=== PATIENT | male | born 1960 | race Caucasian/White ===

== ENCOUNTER 2017-08-15 13:54 | Outpatient (CLI) | payer BC ==
[~2017-08-15 13:54] MED LIST: Gadobenate Dimeglumine 529 MG/1 ML (20ML VIAL) ONE
== END 2017-08-15 13:55 | disposition home or self-care (01) ==
LOC: BICMRI 13:54
PROVIDERS: ATTEND Family Medicine
DX: M47.26 Other spondylosis with radiculopathy, lumbar region (principal); M47.27 Other spondylosis with radiculopathy, lumbosacral region; M51.16 Intervertebral disc disorders with radiculopathy, lumbar region
CPT/HCPCS: 72158; A9579

== ENCOUNTER 2017-11-15 12:27 | Outpatient (CLI) | payer BC ==
--- NOTE | 2017-11-15 16:49 | EKG ---
Test Reason : Blood Pressure : / mmHG Vent. Rate : 081 BPM Atrial Rate : 081 BPM P-R Int : 172 ms QRS Dur : 090 ms QT Int : 356 ms P-R-T Axes : 053 059 040 degrees QTc Int : 413 ms Normal sinus rhythm Normal ECG When compared with ECG of 06-FEB-2017 09:25, No significant change was found Confirmed by DR. Megan RAHMAN (3) on 11/15/2017 4:48:49 PM Referred By: CARLEE Confirmed By:DR. Megan RAHMAN
== END 2017-11-15 12:28 | disposition home or self-care (01) ==
LOC: LABBT 12:27
PROVIDERS: ATTEND Neurological Surgery
DX: Z01.818 Encounter for other preprocedural examination (principal); M54.16 Radiculopathy, lumbar region
CPT/HCPCS: 93005; 93010

== ENCOUNTER 2017-11-20 06:04 | Day surgery (SDC) | payer BC ==
--- NOTE | 2017-11-19 15:07 | HP ---
HISTORY OF PRESENT ILLNESS: Mr. Gardner is a patient referred to us by Dr. Us for lumbar rad iculopathy in a pattern of an L5 distribution bilaterally, more significant on the right side than th e left. He also has significant left-sided lower back pain, though I do not have great explanation f or this unless it is part of his L5 radicular pains. This is all in the setting of an MRI performed at [facility] that reveals severe foraminal stenosis, left worse than right. It is likely impli cated in his symptoms. He has gone through several rounds of injections and is ready to move forward with surgery if possible. PAST MEDICAL HISTORY: Significant for chronic back pain. CURRENT MEDICATIONS: Leon and vitamin B12. ALLERGIES: No known drug allergies. PAST SURGICAL HISTORY: Right elbow surgery, unspecified, ACDF, left shoulder surgery, lumbar laminec maria r and an unspecified left hand surgery. PHYSICAL EXAMINATION: The patient's gait is significantly antalgic. Lower extremity motor exam is n ormal. ASSESSMENT: Lumbar radiculopathy. PLAN: Dr. Tee met with the patient, reviewed imaging and advocated for bilateral L5 foraminotomies . He explained to the patient the risks, benefits and alternatives of the procedure. The patient ex pressed understanding and would like to move forward with surgery as discussed. I do believe the humaira segovia is mentally competent and capable of making medical decisions for himself and we will move forwa rd with surgery as planned. Manjeet Elias PA-C dictating for Dr. Tee.
[2017-11-20] MEDS ORDERED: Bupivacaine HCl 0.5%/Epinephrine 1:200,000/PF 30 ml Vial ONE ×2 (06:16→08:14)
[2017-11-20] MEDS ORDERED: CEFAZOLIN/Water 2 GM/20 ML SYRINGE ONE ×2 (06:56→12:45)
[2017-11-20] MEDS ORDERED: Thrombin 5000 UNITS/5 ML VIAL ONE (08:14)
[2017-11-20] MEDS ORDERED: Fentanyl 250 MCG/5 ML VIAL ONE (09:10)
[2017-11-20] MEDS ORDERED: Midazolam HCl 2 mg/2 ml Vial ONE (09:10)
[2017-11-20] MEDS ORDERED: Ondansetron HCl/PF 4 MG/2 ML Vial ONE ×2 (09:10→14:39)
[2017-11-20] MEDS ORDERED: Tamsulosin HCl 0.4 MG CAP ONE (10:59)
[2017-11-20] MEDS ORDERED: Fentanyl 100 MCG/2 ML VIAL ONE ×2 (10:59→11:19)
[2017-11-20] MEDS ORDERED: HYDROcodone/Acetaminophen 5/325 mg Tablet ONE (12:45)
[2017-11-20] MEDS ORDERED: Dexamethasone 20 MG/5 ML VIAL ONE (14:39)
[2017-11-20] MEDS ORDERED: Lidocaine 1% PF 5 ML VIAL ONE (14:39)
[2017-11-20] MEDS ORDERED: Glycopyrrolate 0.2 MG/ML 5 ML SYRINGE ONE (14:39)
[2017-11-20] MEDS ORDERED: PROPOFOL 200 MG/20 ML VIAL ONE (14:39)
--- NOTE | 2017-11-21 13:10 | OP ---
DATE OF PROCEDURE: 11/20/2017 SURGEON: Christopher Tee M.D. POLYMER ENGINEER: Dennis Elias PA-C. INDICATION: Pain. DIAGNOSIS: Bilateral L5 radiculopathy secondary to bilateral L5 stenosis. PROCEDURE: Bilateral L5 foraminotomy. ANESTHESIA: General. TECHNIQUE: The patient was brought into the operating room and placed under anesthesia. He was flip ped from a supine to a prone position on the operating room table. A linear incision was planned ove r the L5 segment. After prepping and draping and after an appropriate operative pause, the incision was created. Soft tissues were swept away from midline. Self-retaining retractors were placed into the wound for optimal exposure. After confirming the appropriate level with C-arm fluoroscopy, bilat eral laminectomies were performed at L5. The exiting L5 nerve roots were identified and foraminotomi es were performed over each in order to decompress the exiting L5 nerve roots. The wound was then ir rigated. Hemostasis was maintained throughout. The wound was then closed in anatomic layers and a p ressure dressing was applied. There were no known procedural complications.
== END 2017-11-20 13:40 | disposition home or self-care (01) ==
LOC: SDC 06:04
PROVIDERS: ATTEND Neurological Surgery
PROC: 01NB0ZZ Release Lumbar Nerve, Open Approach (ICD-10-PCS; principal; 2017-11-20)
DX: M54.16 Radiculopathy, lumbar region (principal); M48.061 Spinal stenosis, lumbar region without neurogenic claudication; M54.12 Radiculopathy, cervical region; M19.90 Unspecified osteoarthritis, unspecified site; Z79.899 Other long term (current) drug therapy; Z98.890 Other specified postprocedural states
CPT/HCPCS: 76001; 96374; J0670; J1100; J2001; J2250; J2405; J2704; J3010

== ENCOUNTER 2019-02-24 20:03 | Emergency (ER) | payer BC ==
[2019-02-24 20:36] LABS: #Basophils 0.1 thou/uL (0.0-0.2); #Eosinphils 0.1 thou/uL (0.0-0.7); #Lymphocytes 1.7 thou/uL (1.20-3.40); #Monocytes 0.7 thou/uL (0.11-0.59); #Neutrophils 3.2 thou/uL (1.40-6.50); %Basophils 1.5 % (0.0-1.0); %Eosinophils 1.9 % (0.0-10.0); %Lymphocytes 29.2 % (21.0-51.0); %Monocytes 11.4 % (0.0-10.0); Mean Corpuscular HGB CONC 33.6 g/dL (32.0-36.0); Mean Corpuscular Hemoglobin 30.6 pg (27.0-31.0); Mean Corpuscular Volume 91.2 fL (78.0-98.0); Mean Platelet Volume 7.7 fL (7.4-10.4); Platelet Count 259 thou/uL (130-400); RBC Distribution Width 12.4 % (11.5-14.5); Red Blood Cell (RBC) Count 5.56 mill/uL (4.70-6.10); White Blood Cell (WBC) Count 5.8 thou/uL (4.8-10.8)
[2019-02-24 20:42] LABS: Bilirubin Negative (Negative); Blood, Urine Negative (Negative); Clarity Clear (Clear); Glucose, Urine (Dipstick) Normal (Negative); Leukocyte Negative Leu/uL (Negative); Nitrite Negative (Negative); Protein, Urine (Dipstick) Negative (Neg-Trace); Urobilinogen Normal mg/dL (Less than 2)
[2019-02-24 20:59] LABS: ALT (SGPT) 16 U/L (8-55); AST (SGOT) 16 U/L (5-34); Albumin 4.5 g/dL (3.5-5.0); Alkaline Phosphatase 92 U/L (40-150); Anion Gap 11 mmol/L (10-20); BUN (Urea Nitrogen) 15 mg/dL (8.4-25.7); Bilirubin, Total 0.6 mg/dL (0.2-1.2); Calc. Creatinine Clearance 0 mL/min (70-130); Calcium 9.6 mg/dL (7.8-10.44); Carbon Dioxide 28 mmol/L (22-29); Chloride 103 mmol/L (98-107); Estimated GFR-MDRD 69; Globulin 2.4 g/dL (2.4-3.5); Glucose 95 mg/dL (70-105); Protein, Total 6.9 g/dL (6.0-8.3); Sodium 138 mmol/L (136-145)
[2019-02-25] MEDS ORDERED: Meclizine HCl 25 MG TAB ONE (00:23)
--- NOTE | 2019-02-25 07:35 | CT ---
PRELIMINARY REPORT/[facility]/EMERGENCY AFTER HOURS PROCEDURE EXAM: CT Head Without Contrast EXAM DATE/TIME: 02/25/2019 12:26 AM CLINICAL HISTORY: 58 years old, male; Patient HX: [id number] is sent to the ED by urgent care after experiencing dizziness and lightheadedness while working outside in the heat. PT reports "catching himself from passing out", and reports nausea. TECHNIQUE: Imaging protocol: Computed tomography images of the head without contrast. COMPARISON: No relevant prior studies available. FINDINGS: Brain: Normal. No hemorrhage. Unremarkable white matter. No mass effect. Ventricles: Normal. No ventriculomegaly. Bones/joints: Unremarkable. No acute fracture. Sinuses: Visualized sinuses are unremarkable. No fluid levels. Mastoid air cells: Visualized mastoid air cells are well aerated. No mastoid effusion. Soft tissues: Unremarkable. IMPRESSION: No acute intracranial abnormality. Thank you for allowing us to participate in the care of your patient. Dictated and Authenticated by: Claribel Bradshaw MD 02/25/2019 12:52 AM Central Time ([place] & [place]) FINAL REPORT CT HEAD WITHOUT CONTRAST: HISTORY: Dizziness and lightheadedness. FINDINGS: No parenchymal hemorrhage. No extraaxial hematoma. Brain volume is age appropriate. No hydrocephal us. Cortical ibarra white matter differentiation is preserved. Adequate aeration of the sinuses and m astoid air cells. Intact calvarium. IMPRESSION: No acute intracranial process. This report is in agreement with the preliminary report by [facility]. CODE QA POS: LUCAS
== END 2019-02-25 02:12 | disposition home or self-care (01) ==
LOC: ERS 20:03
DX: H81.13 Benign paroxysmal vertigo, bilateral (principal); F32.9 Major depressive disorder, single episode, unspecified; F17.220 Nicotine dependence, chewing tobacco, uncomplicated
CPT/HCPCS: 36415; 70450; 80053; 81003; 82550; 84484; 85025; 96360; 96361; J8597

== ENCOUNTER 2019-11-25 15:03 | Outpatient (CLI) | payer BC ==
--- NOTE | 2019-11-25 15:35 | RAD ---
RADIOGRAPH CERVICAL SPINE 3 VIEWS: DATE: 11/25/2019 HISTORY: 59-year-old male with cervicalgia COMPARISON: 11/09/2014 TECHNIQUE: Lateral, swimmer's, and AP views. FINDINGS: Again noted is the ACDF hardware at C5, C6, and C7. Alignment is normal. There has been interval anky losis across the C5-6 and C6-7 disc spaces. There has been interval worsening of facet DJD at C2-3, C3-4, and C4-5. Very mild new disc space narrowing at C3-4. The C2-3 and C4-5 disc spaces are maintai iron. Vertebral body heights are maintained. No major spondylolisthesis. IMPRESSION: 1. Interval development of Successful ankylosis at the anterior cervical discectomy and fusion at C5- 6-7. 2. Interval worsening of facet osteoarthrosis in the upper and mid cervical spine.
== END 2019-11-25 15:04 | disposition home or self-care (01) ==
LOC: BICRAD 15:03
PROVIDERS: ATTEND Family Medicine
DX: M54.2 Cervicalgia (principal); M47.812 Spondylosis without myelopathy or radiculopathy, cervical region; M43.22 Fusion of spine, cervical region; Z98.1 Arthrodesis status
CPT/HCPCS: 72040

== ENCOUNTER 2019-12-16 09:24 | Outpatient (CLI) | payer BC ==
--- NOTE | 2019-12-16 12:18 | MRI ---
MRI CERVICAL SPINE WITHOUT CONTRAST: INDICATION: Neck pain. History of prior cervical surgery. Cervical radiculopathy. COMPARISON: Correlation is made to plain film cervical spine 11/25/2019. FINDINGS: Postoperative changes are noted from anterior fusion procedure. Anterior plate and screws transfix C 5, C6, and C7 with interbody implants and interbody fusion at these levels. The C2, C3, and C4 vertebrae maintain normal height. Disk spaces at these levels are preserved. No significant disk bulge or spondylosis at C2-3. At C3-4, posterior disk bulge and spondylosis abut the anterior cord. Bilateral foraminal stenosis s econdary to facet and uncinate hypertrophy at this level. At C4-5, posterior disk bulge and spondylosis efface the anterior subarachnoid space. Evidence of mi ld bilateral foraminal encroachment due to facet and uncinate hypertrophy. C5-6 shows interbody fusion. Mild right foraminal narrowing due to uncinate hypertrophy. C6-7: Interbody fusion. Anterior subarachnoid space is preserved. Mild bilateral foraminal narrowi ng more prominent on the right due to uncinate hypertrophy. C7-T1: No significant abnormality. A nerve root sleeve cyst on the left. Cord signal appears normally preserved. IMPRESSION: 1. Postoperative changes from anterior fusion procedure at C5, C6, and C7 levels as described. 2. Posterior disk bulge and spondylosis impinge on the cord at C3-4. Mild spondylotic change at C4- 5 as described. POS: AGW
== END 2019-12-16 09:25 | disposition home or self-care (01) ==
LOC: TBSIIMAG 09:24
PROVIDERS: ATTEND Neurological Surgery
DX: M47.22 Other spondylosis with radiculopathy, cervical region (principal); M50.11 Cervical disc disorder with radiculopathy, high cervical region; Z98.1 Arthrodesis status
CPT/HCPCS: 72141

== ENCOUNTER 2020-01-22 04:46 | Outpatient (CLI) | payer BC, OTHER ==
[2020-01-23 12:36] LABS: SARS-CoV-2 MS2 Positive; SARS-CoV-2 N Gene Negative; SARS-CoV-2 S Gene Negative; SARS-CoV-2 orf1ab Negative
== END 2020-01-22 04:47 | disposition home or self-care (01) ==
LOC: LABBT 04:46
PROVIDERS: ATTEND Neurological Surgery
DX: Z01.812 Encounter for preprocedural laboratory examination (principal); Z11.59 Encounter for screening for other viral diseases; M54.12 Radiculopathy, cervical region
CPT/HCPCS: 87635; U0003

== ENCOUNTER 2020-01-27 05:29 | Day surgery (SDC) | payer BC ==
[2020-01-20 10:20] VITALS: BMI 28.3
--- NOTE | 2020-01-26 18:56 | HP ---
HISTORY OF PRESENT ILLNESS: Mr. Gardner is known to us for prior 2-level ACDF, who presents now with bilateral C4 radiculopathies. He had x-rays performed, which show excellent fusion construct at C5 through C7, with a new MRI as well showing progression of C3-C4 disease with foraminal stenosis bilaterally, that seems to fit well his symptoms. He has treated this conservatively, but hopes to move forward with surgical intervention if possible. PAST MEDICAL HISTORY: Seasonal allergies. CURRENT MEDICATIONS: 1. Vitamin B12. 2. Unknown pain medication. ALLERGIES: NO KNOWN DRUG ALLERGIES. PAST SURGICAL HISTORY: 1. Right arm procedure, unspecified. 2. Two-level ACDF. PHYSICAL EXAMINATION: Examination is deferred for COVID visit. ASSESSMENT: Cervical radiculopathy. PLAN: Dr. Tee met with the patient, reviewed imaging, and advocated for reoperation of C3-C4 ACDF. He explained the patient risks, benefits, and alternatives to the procedure. The patient expressed understanding and elected to move forward with surgery as discussed. I do believe the patient is mentally competent capable of making medical decisions for himself. We will move forward with surgery as planned. Job ID: [id number]
[2020-01-27] MEDS ORDERED: Thrombin 5000 UNITS/5 ML VIAL ONE (06:10)
[2020-01-27] MEDS ORDERED: Fentanyl 100 MCG/2 ML VIAL ONE ×4 (06:12→09:07)
[2020-01-27] MEDS ORDERED: Midazolam HCl 2 mg/2 ml Vial ONE (06:47)
--- NOTE | 2020-01-27 08:12 | OP ---
DATE OF PROCEDURE: 01/27/2020 RECEIVABLE EXECUTIVE: Manjeet Elias PA-C INDICATION: Pain. DIAGNOSIS: Cervical radiculopathy. PROCEDURE PERFORMED: Anterior cervical diskectomy and fusion, C3-C4. ANESTHESIA: General. DESCRIPTION OF PROCEDURE: The patient was brought into the operating room and placed under general anesthesia. He was placed on table in a supine position. A transverse incision was planned over the lateral aspect of the neck on the right. After prepping and draping and after an appropriate preoperative pause, the incision was created. The underlying platysma muscle was identified and incised. A blunt tissue plane anterior to the sternocleidomastoid muscle was used to gain access to the prevertebral space. Self-retaining retractors were placed in the wound for optimal exposure. After confirming the appropriate level with C-arm fluoroscopy, an annulotomy was performed in the C3-C4 disk space. All disk material as well as anterior and posterior osteophytes were removed. After completing the decompression, a 6-mm lordotic PEEK cage packed with allograft and autograft material was placed within the interbody space. An anterior cervical plate was then fashioned to the front of the spine and secured with a total of 4 fixed screws. Midline and lateral structures were inspected and found to be free from significant trauma. The wound was irrigated. Hemostasis was maintained throughout. The wound was then closed in anatomic layers, and a pressure dressing was applied. There were no known procedural complications. Job ID: [id number]
[2020-01-27] MEDS ORDERED: Morphine 4 MG/ML VIAL ONE (09:45)
[2020-01-27] MEDS ORDERED: Acetaminophen/Codeine 30-300mg Tablet ONE (10:40)
[2020-01-27] MEDS ORDERED: Dexamethasone 20 MG/5 ML VIAL ONE (10:52)
[2020-01-27] MEDS ORDERED: Lidocaine 1% PF 5 ML VIAL ONE (10:52)
[2020-01-27] MEDS ORDERED: Ondansetron PF 4 MG/2 ML Vial ONE (10:52)
[2020-01-27] MEDS ORDERED: PROPOFOL 200 MG/20 ML VIAL ONE (10:52)
[2020-01-27] MEDS ORDERED: Rocuronium Bromide 10 MG/ML (10ML VIAL) ONE (10:52)
== END 2020-01-27 12:05 | disposition home or self-care (01) ==
LOC: SDC 05:29
PROVIDERS: ATTEND Neurological Surgery
PROC: 0RG10A0 Fusion of Cervical Vertebral Joint with Interbody Fusion Device, Anterior Approach, Anterior Column, Open Approach (ICD-10-PCS; principal; 2020-01-27)
PROC: 0RT30ZZ Resection of Cervical Vertebral Disc, Open Approach (ICD-10-PCS; principal; 2020-01-27)
DX: M54.12 Radiculopathy, cervical region (principal); F17.290 Nicotine dependence, other tobacco product, uncomplicated; Z79.899 Other long term (current) drug therapy
CPT/HCPCS: 76000; C1713; C1776; J0690; J1100; J2250; J2270; J2405; J2704; J3010

== ENCOUNTER 2020-01-31 01:48 | Emergency (ER) | payer BC ==
[2020-01-31] MEDS ORDERED: Ondansetron PF 4 MG/2 ML Vial ONE (03:13)
[2020-01-31] MEDS ORDERED: Morphine 4 MG/ML VIAL ONE (03:13)
[2020-01-31 03:31] LABS: #Basophils 0.1 thou/uL (0.0-0.2); #Eosinphils 0.1 thou/uL (0.0-0.7); #Lymphocytes 1.1 thou/uL (1.20-3.40); #Monocytes 0.7 thou/uL (0.11-0.59); #Neutrophils 6.4 thou/uL (1.40-6.50); %Basophils 0.7 % (0.0-1.0); %Eosinophils 1.4 % (0.0-10.0); %Lymphocytes 12.6 % (21.0-51.0); %Monocytes 8.7 % (0.0-10.0); %Neutrophils 76.6 % (42.0-75.0); Hemoglobin 16.9 g/dL (14.0-18.0); Mean Corpuscular HGB CONC 33.6 g/dL (32.0-36.0); Mean Corpuscular Hemoglobin 30.6 pg (27.0-31.0); Mean Corpuscular Volume 91.1 fL (78.0-98.0); Mean Platelet Volume 7.8 fL (7.4-10.4); Platelet Count 219 thou/uL (130-400); RBC Distribution Width 12.3 % (11.5-14.5); Red Blood Cell (RBC) Count 5.53 mill/uL (4.70-6.10); White Blood Cell (WBC) Count 8.3 thou/uL (4.8-10.8)
[2020-01-31 03:49] LABS: Anion Gap 12 mmol/L (10-20); BUN (Urea Nitrogen) 9 mg/dL (8.4-25.7); Calc. Creatinine Clearance 0 mL/min (70-130); Calcium 9.6 mg/dL (7.8-10.44); Carbon Dioxide 24 mmol/L (22-29); Chloride 104 mmol/L (98-107); Estimated GFR-MDRD 88; Glucose 109 mg/dL (70-105); Potassium 4.2 mmol/L (3.5-5.1); Sodium 136 mmol/L (136-145)
[2020-01-31] MEDS ORDERED: Dexamethasone 10 MG/ML VIAL ONE (04:30)
--- NOTE | 2020-01-31 07:46 | CT ---
PRELIMINARY REPORT/[facility]/AFTER HOURS PROCEDURE CT NECK WITH INTRAVENOUS CONTRAST: CLINICAL HISTORY: Patient presents with 3 days of progressive right-sided neck pain. Pain started 1 day after he had woodward rgery on his cervical spine at this hospital. He denies new injury. He has been taking Tylenol 3 and Flexeril as prescribed without relief. He denies fever or drainage from the wound. He feels that the wound has become slowly more swollen. TECHNIQUE: Axial computed tomography images of the neck with intravenous contrast. Sagittal and coronal reformat ions performed. CONTRAST: Isovue-370 100 mL. COMPARISON: None provided. FINDINGS: PHARYNX: The nasopharynx, oropharynx, and hypopharynx are unremarkable. No pharyngeal mucosal based m ass lesions. LARYNX: The larynx is unremarkable. Normal epiglottis. RETROPHARYNGEAL SPACE: No retropharyngeal soft tissue swelling or gas. SALIVARY GLANDS: The parotid, submandibular, and sublingual glands are unremarkable. LYMPH NODES: No lymphadenopathy. THYROID: The thyroid gland is unremarkable. No nodule. BONES: No acute osseous abnormality. Anterior C3-4 and C5-7 fusion hardware without evidence of hard goodman complication. Mild prevertebral right cervical soft tissue edema. No rim-enhancing fluid colle ction. IMPRESSION: 1. Anterior C3-4 and C5-7 fusion hardware without evidence of hardware complication. Mild preverteb ral and right cervical soft tissue stranding, likely post-surgical. 2. No rim enhancing fluid collection or abscess. ELECTRONICALLY SIGNED BY: Christopher Musa DO Jan 31, 2020 3:59:47 AM CDT This report is intended for review by the ordering physician only, in accordance of law. If you recei ve this report in error, please call [facility] at [phone]. FINAL REPORT EMERGENT AFTER HOURS CT NECK WITH CONTRAST: FINDINGS/IMPRESSION: I agree with the findings and impression given in the preliminary report per the [facility] phy sician. There is expected postoperative change in the prevertebral soft tissues from prior cervical fusion. N o focal fluid collection is seen. CODE QA POS: EAA
[2020-01-31] MEDS ORDERED: Iopamidol-370 76% 500 ML 1 ML ONE (13:31)
== END 2020-01-31 04:35 | disposition home or self-care (01) ==
LOC: ERS 01:48
DX: G89.18 Other acute postprocedural pain (principal); M54.2 Cervicalgia; F32.9 Major depressive disorder, single episode, unspecified; Z79.899 Other long term (current) drug therapy
CPT/HCPCS: 70491; 80048; 85025; 96374; 96375; J1100; J2270; J2405; Q9967

== ENCOUNTER 2020-02-11 13:25 | Outpatient (CLI) | payer BC ==
--- NOTE | 2020-02-11 13:42 | RAD ---
Cervical spine 4 views: 02/11/2020 COMPARISON: 11/25/2019 HISTORY: Interval anterior discectomy and fusion, left-sided pain FINDINGS: New anterior discectomy and fusion hardware at C3-4. Stable anterior discectomy and fusion hardware at C5-6/C6-7. One of the screws at the C7 level has backed away from the fusion plate, a stable finding. No prevertebral soft tissue swelling. There is disc space narrowing and anterior oste ophyte formation at C4-5. Multilevel mid cervical spine facet and uncovertebral osteophyte formation noted. IMPRESSION: Postoperative and degenerative change as above.
== END 2020-02-11 13:26 | disposition home or self-care (01) ==
LOC: TBSIIMAG 13:25
PROVIDERS: ATTEND Neurological Surgery
DX: M54.2 Cervicalgia (principal); M47.812 Spondylosis without myelopathy or radiculopathy, cervical region; Z98.890 Other specified postprocedural states
CPT/HCPCS: 72040

== ENCOUNTER 2021-12-01 10:59 | Emergency (ER) | payer BC ==
[2021-12-01] MEDS ORDERED: Ketorolac Tromethamine 30 MG/ML VIAL ONE (11:34)
== END 2021-12-01 12:21 | disposition home or self-care (01) ==
LOC: ERS 10:59
DX: M54.16 Radiculopathy, lumbar region (principal)
CPT/HCPCS: 96372; 99283; J1885

== ENCOUNTER 2021-12-08 12:02 | Outpatient (CLI) | payer BC | END 2021-12-08 12:03 | disposition home or self-care (01) | LOC: BICMRI 12:02 | PROVIDERS: ATTEND Family Medicine | DX: M51.26 Other intervertebral disc displacement, lumbar region (principal) | CPT/HCPCS: 72158; 82565 ==

== ENCOUNTER 2022-01-05 06:31 | Day surgery (SDC) | payer BC ==
[2022-01-02 14:28] VITALS: BMI 27.2
[2022-01-05] MEDS ORDERED: Bupivacaine PF 0.5% 30 ML VIAL ONE (08:28)
[2022-01-05] MEDS ORDERED: EPINEPHrine 1 MG/ML AMP ONE (08:28)
[2022-01-05] MEDS ORDERED: Thrombin 5000 UNITS/5 ML VIAL ONE (08:29)
[2022-01-05] MEDS ORDERED: fentaNYL Citrate/PF 100 MCG/2 ML SYRINGE ONE (08:38)
[2022-01-05] MEDS ORDERED: CEFAZOLIN 2 GM VIAL ONE (08:41)
[2022-01-05] MEDS ORDERED: Sodium Chloride 0.9% 100 ML ONE (08:41)
[2022-01-05] MEDS ORDERED: Glycopyrrolate 0.2 MG/ML 5 ML SYRINGE ONE (08:52)
[2022-01-05] MEDS ORDERED: Ondansetron PF 4 MG/2 ML Vial ONE (08:52)
[2022-01-05] MEDS ORDERED: Lidocaine 1% PF 5 ML VIAL ONE (08:52)
[2022-01-05] MEDS ORDERED: PHENYLEPHRINE-NS 100 MCG/ML 10 ML SYRINGE ONE (08:52)
[2022-01-05] MEDS ORDERED: Dexamethasone 20 MG/5 ML VIAL ONE (08:52)
[2022-01-05] MEDS ORDERED: Ketorolac Tromethamine 30 MG/ML VIAL ONE (08:52)
[2022-01-05] MEDS ORDERED: Rocuronium Bromide 10 MG/ML (10ML VIAL) ONE (08:52)
[2022-01-05] MEDS ORDERED: PROPOFOL 200 MG/20 ML VIAL ONE (08:52)
[2022-01-05] MEDS ORDERED: Fentanyl 100 MCG/2 ML VIAL ONE ×3 (10:13→10:53)
== END 2022-01-05 11:50 | disposition home or self-care (01) ==
LOC: SDC 06:31
PROVIDERS: ATTEND Neurological Surgery
PROC: 0SB20ZZ Excision of Lumbar Vertebral Disc, Open Approach (ICD-10-PCS; principal; 2022-01-05)
DX: M54.16 Radiculopathy, lumbar region (principal); M54.12 Radiculopathy, cervical region
CPT/HCPCS: 76000; C1713; J0171; J0690; J1100; J1885; J2405; J2704; J3010; J3490; S0020

== ENCOUNTER 2023-03-13 09:42 | Emergency (ER) | payer BC ==
[2023-03-13] MEDS ORDERED: Aspirin Chewable 81 MG TAB ONE (10:20)
[2023-03-13] MEDS ORDERED: Nitroglycerin 0.4 MG TAB 1 EACH ONE (10:20)
[2023-03-13 10:22] LABS: #Basophils 0.1 thou/uL (0.0-0.2); #Eosinphils 0.1 thou/uL (0.0-0.7); #Monocytes 0.7 thou/uL (0.11-0.59); #Neutrophils 5.7 thou/uL (1.40-6.50); %Basophils 0.9 % (0.0-1.0); %Eosinophils 0.7 % (0.0-10.0); %Monocytes 9.6 % (0.0-10.0); %Neutrophils 77.5 % (42.0-75.0); Hematocrit 47.4 % (42.0-52.0); Hemoglobin 16.5 g/dL (14.0-18.0); Mean Corpuscular HGB CONC 34.8 g/dL (32.0-36.0); Mean Corpuscular Hemoglobin 31.3 pg (27.0-31.0); Mean Corpuscular Volume 89.9 fl (78.0-98.0); Mean Platelet Volume 9.7 fL (7.4-10.4); Platelet Count 228 10x3/uL (130-400); RBC Distribution Width 12.9 % (11.5-14.5); Red Blood Cell (RBC) Count 5.27 mill/uL (4.70-6.10); White Blood Cell (WBC) Count 7.4 10x3/uL (4.8-10.8)
[2023-03-13 10:49] LABS: ALT (SGPT) 17 U/L (8-55); AST (SGOT) 20 U/L (5-34); Albumin 4.3 g/dL (3.4-4.8); Alkaline Phosphatase 87 U/L (40-110); Anion Gap 13 mmol/L (10-20); BUN (Urea Nitrogen) 9 mg/dL (8.4-25.7); Bilirubin, Total 1.1 mg/dL (0.2-1.2); Calc. Creatinine Clearance 0 mL/min (70-130); Calcium 9.5 mg/dL (7.8-10.44); Carbon Dioxide 22 mmol/L (23-31); Chloride 107 mmol/L (98-107); Estimated GFR 96; Globulin 2.7 g/dL (2.4-3.5); Glucose 103 mg/dL (80-115); Lipase 31 U/L (8-78); Potassium 3.9 mmol/L (3.5-5.1); Sodium 138 mmol/L (136-145)
[2023-03-13 10:57] LABS: Troponin I Less than 0.010 ng/mL (< 0.028)
[2023-03-13] MEDS ORDERED: Lidocaine 4% Cream 5 GM TUBE w/ Tegaderm ONE (11:49)
[2023-03-13] MEDS ORDERED: Lidocaine 4% Patch TD SCH (13:00)
[2023-03-13 15:01] LABS: Troponin I Less than 0.010 ng/mL (< 0.028)
[2023-03-14] MEDS ORDERED: Transdermal Patch Removal TOP SCH (01:00)
== END 2023-03-13 15:45 | disposition home or self-care (01) ==
LOC: ERS 09:42
DX: R07.9 Chest pain, unspecified (principal); M54.12 Radiculopathy, cervical region; I10 Essential (primary) hypertension; F17.220 Nicotine dependence, chewing tobacco, uncomplicated
CPT/HCPCS: 36415; 71045; 80053; 83690; 84484; 85025; 85379; 93005; 94760

== ENCOUNTER 2023-11-22 12:25 | Outpatient (CLI) | payer BC | END 2023-11-22 12:26 | disposition home or self-care (01) | LOC: SCSRAD 12:25 | PROVIDERS: ATTEND Family Medicine | DX: M47.22 Other spondylosis with radiculopathy, cervical region (principal); M43.12 Spondylolisthesis, cervical region; Z98.1 Arthrodesis status | CPT/HCPCS: 72040 ==

== ENCOUNTER 2024-05-15 10:42 | Outpatient (CLI) | payer BC | END 2024-05-15 10:43 | disposition home or self-care (01) | LOC: SCSRAD 10:42 | PROVIDERS: ATTEND Nurse Practitioner Family | DX: R06.02 Shortness of breath (principal) | CPT/HCPCS: 71046 ==

== ENCOUNTER 2024-09-07 13:24 | Outpatient (CLI) | payer BC | END 2024-09-07 13:25 | disposition home or self-care (01) | LOC: SCSRAD 13:24 | PROVIDERS: ATTEND Family Medicine | DX: J22 Unspecified acute lower respiratory infection (principal); R91.8 Other nonspecific abnormal finding of lung field | CPT/HCPCS: 71046 ==